=== PATIENT | male | born 1960 | race Caucasian/White ===

== ENCOUNTER 2022-11-28 09:41 | Outpatient (CLI) | payer BC | END 2022-11-28 09:42 | disposition home or self-care (01) | LOC: BICMRI 09:41 | PROVIDERS: ATTEND Neurological Surgery | DX: M47.26 Other spondylosis with radiculopathy, lumbar region (principal); M89.38 Hypertrophy of bone, other site | CPT/HCPCS: 72120; 72148 ==

== ENCOUNTER 2022-12-20 14:16 | Outpatient (CLI) | payer BC | END 2022-12-20 14:17 | disposition home or self-care (01) | LOC: BICCT 14:16 | PROVIDERS: ATTEND Neurological Surgery | DX: M47.26 Other spondylosis with radiculopathy, lumbar region (principal); M43.06 Spondylolysis, lumbar region; M47.817 Spondylosis without myelopathy or radiculopathy, lumbosacral region; M47.815 Spondylosis without myelopathy or radiculopathy, thoracolumbar region | CPT/HCPCS: 72131 ==

== ENCOUNTER 2023-02-26 17:00 | Outpatient (CLI) | payer BC | END 2023-02-26 17:01 | disposition home or self-care (01) | LOC: SLEEPLAB 17:00 | PROVIDERS: ATTEND Registered Nurse | DX: G47.33 Obstructive sleep apnea (adult) (pediatric) (principal); F41.9 Anxiety disorder, unspecified; R06.83 Snoring; E66.9 Obesity, unspecified; R53.83 Other fatigue; Z68.33 Body mass index [BMI] 33.0-33.9, adult | CPT/HCPCS: 95800 ==

== ENCOUNTER 2025-03-09 09:13 | Outpatient (CLI) | payer MEDICARE, BC | END 2025-03-09 09:14 | disposition home or self-care (01) | LOC: BICRAD 09:13 | PROVIDERS: ATTEND Family Medicine | DX: M25.511 Pain in right shoulder (principal); G89.29 Other chronic pain; M19.011 Primary osteoarthritis, right shoulder ==